=== PATIENT | female | born 2005 | race Caucasian/White ===

== ENCOUNTER 2024-06-26 22:01 | Emergency (ER) | payer BC ==
[~2024-06-26] VITALS: Ht 157.5 cm; Wt 56.4 kg
[~2024-06-26 22:01] MED LIST: FLONASEALLERGY NS; NORCO 325 MG-51 TAB PO; VALTREX1 GM PO
[2024-06-26 22:10] VITALS: TEMP 98.1
[2024-06-26] MEDS ORDERED: Ibuprofen 600 MG TAB PO ONE (23:15)
[2024-06-26] MEDS ORDERED: Amoxicillin 500 MG CAP PO ONE (23:15)
[2024-06-26] MEDS ORDERED: AMOXICILLIN875 MG PO (23:15)
[2024-06-26 23:34] VITALS: BP 114/77; PULSE 84
== END 2024-06-26 23:34 | disposition home or self-care (01) ==
LOC: COL.ER 22:01
DX: H65.191 Other acute nonsuppurative otitis media, right ear (principal)